=== PATIENT | male | born 1950 | race Hispanic/Latino ===

== ENCOUNTER 2016-08-28 15:02 | Emergency (ER) | payer MEDICARE, OTHER, MEDICAID ==
[2016-08-28 15:18] VITALS: BP 142/82; PULSE 98; RESP 20; TEMP 97.9; O2SAT 94
--- NOTE | 2016-08-28 15:33 | C.PDOC ---
History Of Present Illness 66 year old male was brought to the ED by EMS after family became concerned when patient became loud and confrontational today. Patient describes being anxious and irritable after accidentally breaking his coffee pot last night and could not get coffee today. 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 Time Seen by Provider: 08/28/16 15:19 Chief Complaint (Nursing): Psychiatric Evaluation History Per: Patient, EMS, Family History/Exam Limitations: no limitations Suicide/Self Injury Attempted (Context): None Associated Symptoms: Anxiety, Other (irritable ) Past Medical History Reviewed: Historical Data, Nursing Documentation, Vital Signs Vital Signs: Last Vital Signs Temp 97.9 F 08/28/16 15:13 Pulse 98 H 08/28/16 15:13 Resp 20 08/28/16 15:13 BP 142/82 08/28/16 15:13 Pulse Ox 94 L 08/28/16 15:33 - Medical History PMH: Anxiety, HTN, Seizures Family History: States: Unknown Family Hx - Social History Hx Tobacco Use: Yes Hx Alcohol Use: No Hx Substance Use: No - Immunization History Hx Tetanus Toxoid Vaccination: No Hx Influenza Vaccination: No Hx Pneumococcal Vaccination: No Review Of Systems Constitutional: Negative for: Fever, Chills, Sweats Cardiovascular: Negative for: Chest Pain Respiratory: Negative for: Cough, Shortness of Breath, Wheezing Gastrointestinal: Negative for: Nausea, Vomiting, Abdominal Pain, Diarrhea Psych: Positive for: Anxiety Physical Exam - Physical Exam Appears: Non-toxic, No Acute Distress, Other (patient appears disheveled and is cooperative, wants coffee ) Skin: Warm, Dry Head: Atraumatic Eye(s): bilateral: Normal Inspection Oral Mucosa: Moist Neck: Normal ROM, Supple Chest: Symmetrical, No Deformity Cardiovascular: Rhythm Regular Respiratory: No Rales, No Rhonchi, No Stridor, No Wheezing Gastrointestinal/Abdominal: Soft, No Tenderness, No Distention, No Guarding, No Rebound Extremity: Normal ROM, No Tenderness Neurological/Psych: Oriented x3 ED Course And Treatment O2 Sat by Pulse Oximetry: 94 (room air ) Medical Decision Making Medical Decision Making: angry about not having a cup of coffe today (coffee pot broke last night) d/w Crisis- no SI/HI/harm to others safe for d/c Given cup of coffe (light n sweet) with great appreciation. Observed briefly, calm and cooperative Extensive psych w/u not indicated. Disposition Doctor Will See Patient In The: Office Counseled Patient/Family Regarding: Studies Performed, Diagnosis - Disposition Referrals: [facility] [Outside] [facility] [Outside] [facility] [Outside] Disposition: HOME/ ROUTINE Disposition Time: 15:33 Condition: GOOD Additional Instructions: have your regular morning coffee to avoid agitation Resolve conflict friend and family in peaceful and calm manner Follow-up in our outpatient psych services as needed Instructions: Anxiety (ED) - Clinical Impression Clinical Impression: Anxiety - Scribe Statement The provider has reviewed the documentation as recorded by the Scribe Cheryl Porter All medical record entries made by the Scribe were at my direction and personally dictated by me. I have reviewed the chart and agree that the record accurately reflects my personal performance of the history, physical exam, medical decision making, and the department course for this patient. I have also personally directed, reviewed, and agree with the discharge instructions and disposition.
== END 2016-08-28 15:58 | disposition home or self-care (01) ==
LOC: C.ER 15:02
DX: F41.9 Anxiety disorder, unspecified (principal)

== ENCOUNTER 2017-04-30 07:27 | Emergency (ER) | payer MEDICARE, OTHER ==
[2017-04-30 07:33] VITALS: BP 176/89; PULSE 87; RESP 20; TEMP 97.6; O2SAT 98
[2017-04-30] MEDS ORDERED: Lidocaine 5% Patch TD STA (07:54)
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
[2017-04-30] MEDS ORDERED: Lidocaine 5% Patch TD ONE (08:10)
--- NOTE | 2017-05-01 22:28 | CARD ---
APPROVED REPORT EKG Measurement Heart [id number] <Conclusion> Sinus rhythm with occasional premature ventricular complexes and premature atrial complexes Otherwise normal ECG
== END 2017-04-30 08:30 | disposition home or self-care (01) ==
LOC: C.ER 07:27
DX: M25.511 Pain in right shoulder (principal); I10 Essential (primary) hypertension; Z87.891 Personal history of nicotine dependence
CPT/HCPCS: 93005; 96372; 99284; J1885

== ENCOUNTER 2017-06-11 15:10 | Emergency (ER) | payer MEDICARE, OTHER ==
[2017-06-11] MEDS ORDERED: Sodium Chloride 0.9% 1,000 ML IV ONE (16:00)
[2017-06-11] MEDS ORDERED: HYDROmorphone 1 mg/ml ISec IVP STA (16:02)
--- NOTE | 2017-06-11 16:24 | RAD ---
Abdomen single frontal view History: Abdominal pain. Evaluate for obstruction. Comparison: None available. Findings: Small nodular density at the left lung base. Moderate fecal retention in the right hemicolon. Relative paucity of small bowel gas. Degenerative changes in the spine. Impression: Nonspecific bowel gas pattern with relative paucity of small bowel gas loops. Moderate fecal retention in the right hemicolon.
[2017-06-11 16:33] LABS: BASO # 0.1 K/uL (0.0-0.2); BASO % 0.9 % (0.0-2.0); EOS # 0.1 K/uL (0.0-0.7); EOS % 0.7 % (0.0-4.0); HEMOGLOBIN 15.3 g/dL (12.0-18.0); LYMPH # 1.1 K/uL (1.0-4.3); MEAN CELL VOLUME 92.7 fL (80.0-94.0); MEAN CORPUSCULAR HEMOGLOBIN 32.4 pg (27.0-31.0); MEAN CORPUSCULAR HGB CONC 34.9 g/dL (33.0-37.0); MEAN PLATELET VOLUME 8.5 fL (7.2-11.7); MONO # 0.6 K/uL (0.0-0.8); MONO % 5.8 % (0.0-10.0); NEUT # 8.2 K/uL (1.8-7.0); NEUT % 81.6 % (50.0-75.0); NRBC % 0.1 % (0.0-2.0); RBC 4.73 Mil/uL (4.40-5.90); RED CELL DISTRIBUTION WIDTH 13.5 % (11.5-14.5)
[2017-06-11] MEDS ORDERED: Iohexol 300 100 ML IJ ONE (16:36)
[2017-06-11 16:47] LABS: ALB/GLOB RATIO 1.1 (1.0-2.1); ALBUMIN 4.5 g/dL (3.5-5.0); CALCIUM 9.4 mg/dl (8.6-10.4)
[2017-06-11] MEDS ORDERED: HYDROmorphone 1 mg/ml ISec ONE (16:49)
[2017-06-11] MEDS ORDERED: Sodium Chloride 0.9% 1,000 ML ONE (16:49)
[2017-06-11 17:04] LABS: SQUAMOUS EPITHIAL < 1 /hpf (0-5); URINE BACTERIA RARE (<OCC); URINE BILIRUBIN NEGATIVE (NEGATIVE); URINE BLOOD NEGATIVE (NEGATIVE); URINE CLARITY Clear (Clear); URINE COLOR Yellow (YELLOW); URINE GLUCOSE (UA) NORMAL (Normal); URINE LEUKOCYTE ESTERASE NEG Leu/uL (Negative); URINE NITRATE NEGATIVE (NEGATIVE); URINE PROTEIN NEGATIVE (NEGATIVE); URINE UROBILINOGEN NORMAL mg/dL (0.2-1.0)
--- NOTE | 2017-06-11 18:26 | CT ---
EXAM: CT Abdomen and Pelvis With Intravenous Contrast EXAM DATE/TIME: 06/11/2017 4:00 PM CLINICAL HISTORY: 66 years old, male; Pain; Abdominal pain; Flank; Left lower quadrant (llq); Additional info: Left-sided abdominal pain TECHNIQUE: Axial computed tomography images of the abdomen and pelvis with intravenous contrast. All CT scans at this facility use one or more dose reduction techniques, viz.: automated exposure control; ma/kV adjustment per patient size (including targeted exams where dose is matched to indication; i.e. head); or iterative reconstruction technique. Coronal and sagittal reformatted images were created and reviewed. CONTRAST: 100 mL of OMNIPAQUE 300 administered intravenously. COMPARISON: There are no prior studies for comparison. FINDINGS: Lower thorax: Heart size is at the upper limits of normal. There is a small hiatal hernia. There is a calcified granuloma at the left base. There is atelectasis and scarring at the lung bases. ABDOMEN: Liver: There is a calcification in the dome of the liver. Gallbladder and bile ducts: unremarkable Pancreas: Pancreas is mildly atrophic. There is prominence of the distal pancreatic duct, 4 mm in diameter. Spleen: unremarkable Adrenals: unremarkable Kidneys and ureters: Kidneys and ureters are unremarkable. Stomach and bowel: Stomach is incompletely distended. Rotation is normal. There is no small bowel obstruction. Ileocecal region is unremarkable. Appendix and terminal ileum are unremarkable.Motion limits evaluation of the colon.Colon is incompletely distended which limits evaluation. There is minimal diverticulosis Appendix: See stomach and bowel PELVIS: Bladder: unremarkable Reproductive: Seminal vesicles and prostate are unremarkable. ABDOMEN and PELVIS: Intraperitoneal space: There is no free air or free fluid. Bones/joints: Bony structures are osteopenic with degenerative change. Soft tissues: unremarkable Vasculature: There are vascular calcifications. Lymph nodes: There is no pathologic adenopathy. IMPRESSION: No acute solid visceral or bowel abnormality; no renal or ureteral stones or hydronephrosis; no CT findings of appendicitis or diverticulitis
--- NOTE | 2017-06-11 18:33 | C.PDOC ---
History Of Present Illness 66 year old male presents to the ED for evaluation of left-sided abdominal pain which began earlier today. Patient also reports mild nausea and states his stool is light brown. Patient was able to eat today. He denies fever, chills, cough, chest pain, shortness of breath, vomiting, diarrhea, bloody stools, and trauma. Chief Complaint (Nursing): Abdominal Pain History Per: Patient History/Exam Limitations: no limitations Onset/Duration Of Symptoms: Hrs Current Symptoms Are (Timing): Still Present Location Of Pain/Discomfort: Other (left-sided ) Radiation Of Pain To:: None Quality Of Discomfort: "Pain" Associated Symptoms: Nausea. denies: Fever, Chills, Vomiting Exacerbating Factors: denies: Cough Additional History Per: Patient Past Medical History Reviewed: Historical Data, Nursing Documentation, Vital Signs Vital Signs: Last Vital Signs Temp 97.2 F L 06/11/17 15:36 Pulse 70 06/11/17 15:36 Resp 18 06/11/17 15:36 BP 172/86 H 06/11/17 15:36 Pulse Ox 98 06/11/17 18:36 - Medical History PMH: Anxiety, HTN, Seizures Denies: HIV, Sexually Transmitted Disease Surgical History: No Surg Hx Family History: States: Unknown Family Hx - Social History Hx Tobacco Use: Yes Hx Alcohol Use: No Hx Substance Use: No - Immunization History Hx Tetanus Toxoid Vaccination: No Hx Influenza Vaccination: No Hx Pneumococcal Vaccination: No Review Of Systems Constitutional: Negative for: Fever, Chills Cardiovascular: Negative for: Chest Pain Respiratory: Negative for: Cough, Shortness of Breath Gastrointestinal: Positive for: Nausea, Abdominal Pain (left-sided). Negative for: Vomiting, Diarrhea, Hematochezia Physical Exam - Physical Exam Appears: Non-toxic, No Acute Distress Skin: Normal Color, Warm, Dry Head: Atraumatic, Normacephalic Eye(s): bilateral: Normal Inspection Oral Mucosa: Moist Teeth: No Normal Dentition (poor ) Neck: Supple Chest: Symmetrical, No Deformity, No Tenderness Cardiovascular: Rhythm Regular, No Murmur Respiratory: Normal Breath Sounds, No Rales, No Rhonchi, No Wheezing Gastrointestinal/Abdominal: Bowel Sounds (hyperactive ), Soft, Tenderness ( diffuse, left>right), No Guarding, No Rebound Extremity: Normal ROM, Capillary Refill (less than 2 seconds ) Neurological/Psych: Oriented x3, Normal Speech, Normal Cognition ED Course And Treatment - Laboratory Results Result Diagrams: 06/11/17 16:30 06/11/17 16:30 O2 Sat by Pulse Oximetry: 98 (on RA) Pulse Ox Interpretation: Normal Medical Decision Making Medical Decision Making: Progress: Bloodwork, urinalysis, CT A/P, Abdomen XR ordered and reviewed. Dilaudid IVP and IV Fluids administered. Disposition - Disposition Referrals: Lela Zaragoza, [Non-Staff] - Disposition: HOME/ ROUTINE Disposition Time: 18:30 Condition: IMPROVED Additional Instructions: Thank you for letting us take care of you today. The emergency medical care you received today was directed at your acute symptoms. If you were prescribed any medication, please fill it and take as directed. It may take several days for your symptoms to resolve. Return to the Emergency Department if your symptoms worsen, do not improve, or if you have any other problems. Please contact your doctor or call one of the physicians/clinics you have been referred to that are listed on the Patient Visit Information form that is included in your discharge packet. Bring any paperwork you were given at discharge with you along with any medications you are taking to your follow up visit. Our treatment cannot replace ongoing medical care by a primary care provider (PCP) outside of the emergency department. Thank you for allowing the [facility] team to be part of your care today. Follow up with your primary doctor in 2-3 days for re-evaluation and further management. Prescriptions: Docusate [Colace] 100 mg PO Q8 PRN #20 cap PRN Reason: Constipation Instructions: Constipation, Adult (DC) Forms: [facility] (Danish) - Clinical Impression Clinical Impression: Constipation - Scribe Statement The provider has reviewed the documentation as recorded by the Scribe (Mariel Montero) Provider Attestation: All medical record entries made by the Scribe were at my direction and personally dictated by me. I have reviewed the chart and agree that the record accurately reflects my personal performance of the history, physical exam, medical decision making, and the department course for this patient. I have also personally directed, reviewed, and agree with the discharge instructions and disposition.
[2017-06-11 19:43] VITALS: BP 152/74; PULSE 73; RESP 20; TEMP 97.8; O2SAT 97
== END 2017-06-11 19:51 | disposition home or self-care (01) ==
LOC: C.ER 15:10
DX: K59.00 Constipation, unspecified (principal); I10 Essential (primary) hypertension
CPT/HCPCS: 74018; 74177; 80053; 81001; 83690; 85025; 87086; 87181; 96374; 99284; J1170; J7040; Q9967

== ENCOUNTER 2017-10-07 02:00 | Emergency (ER) | payer MEDICARE, OTHER ==
[2017-10-07 02:29] VITALS: BMI 19.3
[2017-10-07 02:40] LABS: SQUAMOUS EPITHIAL < 1 /hpf (0-5); URINE BILIRUBIN NEGATIVE (NEGATIVE); URINE BLOOD NEGATIVE (NEGATIVE); URINE CLARITY Clear (Clear); URINE COLOR Yellow (YELLOW); URINE GLUCOSE (UA) NORMAL (Normal); URINE LEUKOCYTE ESTERASE TRACE Leu/uL (Negative); URINE PROTEIN NEGATIVE (NEGATIVE); URINE UROBILINOGEN NORMAL mg/dL (0.2-1.0)
--- NOTE | 2017-10-07 03:06 | C.PDOC ---
History Of Present Illness 67 year old male presents to the ED for evaluation of testicular pain that comes and goes for the past months. Patient reports he feels "my scrotum is split in 2". Patient denies injury, fall, trauma, dysuria, hematuria, back pain. Chief Complaint (Nursing): Male Genitourinary History Per: Patient History/Exam Limitations: no limitations Onset/Duration Of Symptoms: Days Current Symptoms Are (Timing): Still Present Quality Of Discomfort: "Pain" Associated Symptoms: denies: Nausea, Vomiting, Diarrhea, Urinary Symptoms Alleviating Factors: None Recent travel outside of the [place]: No Additional History Per: Patient Past Medical History Reviewed: Historical Data, Nursing Documentation, Vital Signs Vital Signs: Last Vital Signs Temp 98.5 F 10/07/17 05:07 Pulse 67 10/07/17 05:07 Resp 18 10/07/17 05:07 BP 149/75 10/07/17 05:07 Pulse Ox 98 10/07/17 05:31 - Medical History PMH: Anxiety, HTN, Seizures Denies: HIV, Sexually Transmitted Disease Surgical History: No Surg Hx Family History: States: Unknown Family Hx - Social History Hx Tobacco Use: Yes Hx Alcohol Use: No Hx Substance Use: No - Immunization History Hx Tetanus Toxoid Vaccination: No Hx Influenza Vaccination: No Hx Pneumococcal Vaccination: No Review Of Systems Constitutional: Negative for: Fever, Chills Cardiovascular: Negative for: Chest Pain Respiratory: Negative for: Shortness of Breath Gastrointestinal: Negative for: Abdominal Pain, Constipation Genitourinary: Positive for: Scrotal Pain. Negative for: Dysuria, Hematuria Musculoskeletal: Negative for: Hand Pain Skin: Negative for: Rash Physical Exam - Physical Exam Appears: Non-toxic, No Acute Distress Skin: Normal Color, Warm, Dry Head: Atraumatic, Normacephalic Eye(s): bilateral: Normal Inspection Oral Mucosa: Moist Neck: Normal ROM, Supple Chest: Symmetrical Cardiovascular: Rhythm Regular Respiratory: Normal Breath Sounds, No Rales, No Rhonchi, No Wheezing Gastrointestinal/Abdominal: Soft, No Tenderness, No Guarding, No Rebound Back: Normal Inspection Male Genital: Testicular Tenderness (left ), No Testicular Swelling, No Scrotal Swelling, Other (no erythema seen, no open sores) Extremity: Normal ROM, No Tenderness, No Swelling Neurological/Psych: Oriented x3, Normal Speech Gait: Steady ED Course And Treatment O2 Sat by Pulse Oximetry: 98 (ON RA) Pulse Ox Interpretation: Normal - CT Scan/US US testicular Other Rad Studies (CT/US): Read By Radiologist, Radiology Report Reviewed CT/US Interpretation: Name: SAMIRA WEIR Age: 67Years M Date: 10/07/2017. Requesting Physician: Shelbie Stewart PA-C : 1950. [employer] Procedure Ordered As Accession Number of Images. US SCROTUM & CONTENTS US TESTICULAR [id number] 53. Provided Clinical History: testicular pain. CONFIDENTIALITY STATEMENT. This report is intended only for the use of the referring physician, and only in accordance with law, If you received this in error, call [phone]. Page 1 of 1. EXAM: US Scrotum. CLINICAL HISTORY: 67 years old, male; Pain; Scrotum pain; Additional info: Testicular pain. TECHNIQUE: Real-time ultrasound of the scrotum with color Doppler and image documentation. COMPARISON: No relevant prior studies available. FINDINGS: Right testicle: Trace fluid around the right testicle. No torsion. Left testicle: Small amount of fluid around the left testicle. No torsion. Epididymides: Right epididymal cysts measuring 5 mm x 6 mm x 4 mm. Scrotum: Left varicocele. IMPRESSION: No acute findings. Thank you for allowing us to participate in the care of your patient. Dictated and Authenticated by: Donn Webb MD. 10/07/2017 5:30 AM Eastern Time ([place] & [place]) Progress Note: Plan: - UA. - Testicular US Disposition - Disposition Referrals: Jose Romero MD [Staff Provider] - Disposition Time: 05:37 Condition: STABLE Additional Instructions: Follow up with Urologist within 1-2 days. Return to ED if feel worse. 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 - Scribe Statement The provider has reviewed the documentation as recorded by the Scribe Roosevlet Brown All medical record entries made by the Scribe were at my direction and personally dictated by me. I have reviewed the chart and agree that the record accurately reflects my personal performance of the history, physical exam, medical decision making, and the department course for this patient. I have also personally directed, reviewed, and agree with the discharge instructions and disposition.
[2017-10-07 05:09] VITALS: BP 149/75; PULSE 67; RESP 18; TEMP 98.5
[2017-10-07 05:31] VITALS: O2SAT 98
--- NOTE | 2017-10-07 08:33 | US ---
HISTORY: Testicular pain TECHNIQUE: Realtime sonography through the scrotum with color and doppler flow. COMPARISON: None Available. FINDINGS: RIGHT TESTICLE: Measures 4.5 x 1.5 x 2.6 cm. Normal echotexture and flow. RIGHT EPIDIDYMIS: Epididymal head measures 0.8 x 0.7 x 0.8 cm. There is a 5 mm cyst in the head of the epididymis, otherwise normal echotexture with normal flow. LEFT TESTICLE: Measures 3.8 x 1.5 x 2.4 cm. Normal echotexture and flow. LEFT EPIDIDYMIS: Epididymal head measures 0.8 x 0.6 x 0.9 cm. Grossly unremarkable appearance with normal flow. HYDROCELE: None. VARICOCELE: There is a small left varicocele. OTHER FINDINGS: None. IMPRESSION: No evidence for testicular mass, torsion or epididymo-orchitis Small left varicocele.
== END 2017-10-07 05:49 | disposition home or self-care (01) ==
LOC: C.ER 02:00
DX: N50.812 Left testicular pain (principal)

== ENCOUNTER 2018-02-07 17:36 | Emergency (ER) | payer OTHER ==
[2018-02-07 17:42] VITALS: BMI 18.8
[2018-02-07 17:44] VITALS: PULSE 99; RESP 18; O2SAT 98
[2018-02-07 18:12] LABS: BASO # 0.1 K/uL (0.0-0.2); EOS # 0.1 K/uL (0.0-0.7); EOS % 0.7 % (0.0-4.0); HEMOGLOBIN 14.5 g/dL (12.0-18.0); LYMPH # 1.1 K/uL (1.0-4.3); LYMPH % 13.5 % (20.0-40.0); MEAN CELL VOLUME 91.9 fL (80.0-94.0); MEAN CORPUSCULAR HEMOGLOBIN 31.5 pg (27.0-31.0); MEAN CORPUSCULAR HGB CONC 34.2 g/dL (33.0-37.0); MEAN PLATELET VOLUME 8.8 fL (7.2-11.7); MONO # 0.6 K/uL (0.0-0.8); MONO % 6.8 % (0.0-10.0); NEUT # 6.4 K/uL (1.8-7.0); RBC 4.62 Mil/uL (4.40-5.90); RED CELL DISTRIBUTION WIDTH 13.5 % (11.5-14.5); WHITE BLOOD COUNT 8.2 K/uL (4.8-10.8)
--- NOTE | 2018-02-07 18:20 | RAD ---
Date of service: 02/07/2018 PROCEDURE: CHEST RADIOGRAPH, 1 VIEW HISTORY: Chest pain COMPARISON: 09/04/2013 FINDINGS: LUNGS: Clear. PLEURA: No pneumothorax or pleural fluid seen. CARDIOVASCULAR: Atherosclerotic calcifications identified primarily aortic arch. No radiographic findings to suggest acute or significant cardiovascular disease. OSSEOUS STRUCTURES: No significant abnormalities. VISUALIZED UPPER ABDOMEN: Normal. OTHER FINDINGS: None. IMPRESSION: No active disease.No significant interval change compared to the prior examination(s).
[2018-02-07 18:21] LABS: ALB/GLOB RATIO 1.2 (1.0-2.1); ALT/SGPT 22 U/L (21-72); AST/SGOT 25 U/L (17-59); BLOOD UREA NITROGEN 26 mg/dL (9-20); CALCIUM 9.4 mg/dl (8.6-10.4); GFR NON-AFRICAN AMERICAN 50
--- NOTE | 2018-02-07 18:26 | C.PDOC ---
History Of Present Illness 67 year old male with a history of HTN, HLD and right shoulder surgery (1984) presents to the ED via EMS for evaluation of right-sided chest pain that radiates to his right shoulder that developed today. The patient lives with his daughter, his nephew called EMS because he was experiencing chest pain. Patient reports waking up with no symptoms, chest discomfort symptoms developed throughout the day. Denies fever, chills, trouble breathing, shortness of breath, cough, nausea, vomiting, abdominal pain, and any other associated s ymptoms. Time Seen by Provider: 02/07/18 17:45 Chief Complaint (Nursing): Chest Pain History Per: Patient, Family (daughter.) History/Exam Limitations: no limitations Onset/Duration Of Symptoms: Days Current Symptoms Are (Timing): Still Present Past Medical History Reviewed: Historical Data, Nursing Documentation, Vital Signs Vital Signs: Last Vital Signs Temp 98.3 F 02/07/18 17:42 Pulse 99 H 02/07/18 17:42 Resp 18 02/07/18 17:42 BP 96/43 L 02/07/18 17:42 Pulse Ox 98 02/07/18 17:42 - Medical History PMH: Anxiety, HTN, Hyperlipidemia, Seizures Denies: HIV, Sexually Transmitted Disease Other Surgeries: Shoulder surgery Family History: States: Unknown Family Hx - Social History Hx Tobacco Use: Yes Hx Alcohol Use: No Hx Substance Use: No - Immunization History Hx Tetanus Toxoid Vaccination: No Hx Influenza Vaccination: No Hx Pneumococcal Vaccination: No Review Of Systems Constitutional: Negative for: Fever, Chills Cardiovascular: Positive for: Chest Pain (right-sided. radiates to right shoulder.) Respiratory: Negative for: Cough, Shortness of Breath, Other (trouble breathing.) Gastrointestinal: Negative for: Nausea, Vomiting, Abdominal Pain Physical Exam - Physical Exam Appears: Well, Non-toxic, No Acute Distress Skin: Normal Color, Warm, Dry Head: Atraumatic, Normacephalic Eye(s): bilateral: Normal Inspection Oral Mucosa: Moist Neck: Normal ROM, Supple Chest: Symmetrical, No Deformity Cardiovascular: Rhythm Regular, No Murmur Respiratory: Normal Breath Sounds, No Rales, No Rhonchi, No Wheezing Gastrointestinal/Abdominal: Normal Exam, Soft, No Tenderness Extremity: Normal ROM (x3. Limited range of motion to the right shoulder/arm. ), No Tenderness, Capillary Refill (less than 2 seconds), No Deformity, No Swelling, Other (old, healed scar over the right shoulder.) Extremity: Bilateral: No Pedal Edema Neurological/Psych: Oriented x3, Normal Speech, Normal Motor, Normal Sensation, Normal Reflexes ED Course And Treatment - Laboratory Results Result Diagrams: 02/07/18 18:02 02/07/18 18:02 Lab Interpretation: No Acute Changes ECG: Interpreted By Me ECG Rhythm: Sinus Rhythm ECG Interpretation: No Acute Changes O2 Sat by Pulse Oximetry: 98 (RA) Pulse Ox Interpretation: Normal - Radiology CXR: Viewed By Me CXR Interpretation: Yes: No Acute Disease - Other Rad CXR X-Ray: Viewed By Me, Read By Radiologist Interpretation: FINDINGS: LUNGS: Clear. PLEURA: No pneumothorax or pleural fluid seen. CARDIOVASCULAR: Atherosclerotic calcifications identified primarily aortic arch. No radiographic findings to suggest acute or significant cardiovascular disease. OSSEOUS STRUCTURES: No significant abnormalities. VISUALIZED UPPER ABDOMEN: Normal. OTHER FINDINGS: None. IMPRESSION: No active disease.No significant interval change compared to the prior examination(s). Reevaluation Time: 18:43 Reassessment Condition: Improved Medical Decision Making Medical Decision Making: Plan: -EKG Blood sent. CXR Urinalysis. Disposition Counseled Patient/Family Regarding: Studies Performed, Diagnosis, Need For Followup - Disposition Referrals: Ruthie Garcia MD [Staff Provider] - Disposition: HOME/ ROUTINE Disposition Time: 18:45 Condition: STABLE Instructions: Muscle and Bone Pain (DC) Forms: [facility] (Romansh) - Clinical Impression Clinical Impression: Anterior chest wall pain - Scribe Statement The provider has reviewed the documentation as recorded by the Scribe (Archana Mitchell) Provider Attestation: All medical record entries made by the Scribe were at my direction and personally dictated by me. I have reviewed the chart and agree that the record accurately reflects my personal performance of the history, physical exam, medical decision making, and the department course for this patient. I have also personally directed, reviewed, and agree with the discharge instructions and disposition.
[2018-02-07 18:51] VITALS: BP 162/86
[2018-02-07 18:52] VITALS: TEMP 97.8
--- NOTE | 2018-02-12 07:34 | CARD ---
APPROVED REPORT Date of service: 02/07/2018 EKG Measurement Heart [id number] <Conclusion> Sinus rhythm with premature atrial complexes Possible Left atrial enlargement Borderline ECG
== END 2018-02-07 18:59 | disposition home or self-care (01) ==
LOC: C.ER 17:36
DX: R07.89 Other chest pain (principal)